=== PATIENT | female | born 1970 | race Caucasian/White ===

== ENCOUNTER → 2020-06-13 | Outpatient (CLI) | payer OTHER ==
--- NOTE | 2020-06-14 19:25 | MAM ---
EXAM DESCRIPTION: 3D Screening BILATERAL : Digital Mammography. CLINICAL HISTORY: 50 years Female SCREENING . No complaints. Mother with ovarian cancer age 29. Sister with breast cancer age 51. No personal history of breast cancer. Menarche age 16. Childbirth age 19. Menopause age 42. No HRT. Lifetime risk of developing breast cancer (Tyrer-Cuzick model)(%): 14.9. COMPARISON: Baseline study at this facility.. No prior reports available. TECHNIQUE: Bilateral CC and MLO projection full-field images, digital tomosynthesis mammographic technique. Bilateral digital 2-D full-field MLO images. CAD available for 2-D images. FINDINGS: The breast parenchymal density pattern is: Scattered areas of fibroglandular density. No skin thickening or nipple retraction. Axillary nodes. Solitary microcalcifications. Focal asymmetry versus mass density upper outer quadrant middle third left breast at 2:30. No focal, stellate mass or density, focal asymmetry , and no suspicious microcalcifications right breast IMPRESSION: BI-RADS CATEGORY: 0 - INCOMPLETE- Need additional imaging evaluation. RECOMMENDATIONS: FOLLOW-UP: Recall for additional imaging: Full-field 2-D and tomosynthesis bilateral MLO projections and left breast full-field 2-D and tomosynthesis LM and CC projections. Directed left breast ultrasound. Written communication concerning the IMPRESSION and Follow-up, will be mailed to the patient and referring health care provider. Electronically signed by: Shailesh Cnuningham MD 06/14/2020 7:23 PM [employer]APH[employer]
== END ==
LOC: MAMMO 13:50
PROVIDERS: ATTEND Family Medicine
DX: Z12.31 Encounter for screening mammogram for malignant neoplasm of breast (principal)

== ENCOUNTER → 2020-07-09 | Outpatient (CLI) | payer OTHER ==
--- NOTE | 2020-07-10 17:57 | MAM ---
EXAM DESCRIPTION: 3D Diagnostic, Bilateral (accession [id number]), Breast,Left (accession [id number]): Ultrasound CLINICAL HISTORY: 50 yearsFemaleABNORMAL SCREENING focal asymmetry versus mass density left breast. Lifetime risk of developing breast cancer (Tyrer-Cuzick model)(%): 14.9. COMPARISON: Bilateral screening digital breast tomosynthesis June 13. TECHNIQUE: Bilateral LM projection full-field images, and left breast spot compression CC and LM projection: digital tomosynthesis technique. Bilateral 2-D digital full-field images: LM projection and left breast spot compression CC and LM projection. CAD available for 2-D images.. Transcutaneous scanning of the left breast utilizing frausto-scale and Doppler modes. Scanning performed by the commercial collections driver ; observation by Dr. Cunningham. FINDINGS: The breast parenchymal density pattern is: Scattered areas of fibroglandular density. Solitary microcalcifications. Axillary nodes. No skin thickening or nipple retraction multiple nodular densities in the region of interest in the left breast with uniform appearance. No abnormal margins. No new focal, stellate mass or density, focal asymmetry , and no suspicious microcalcifications bilaterally. Ultrasound: Scanning in the lateral middle third left breast. Mostly fatty tissue. Oval shaped circumscribed anechoic structure wider than tall orientation with posterior acoustic enhancement measuring 3.1 mm. Nonvascular. Second structure also having a cystic appearance measuring 4.1 x 3.0 mm. No dominant solid mass, no fluid collection, no large calcifications, and no overlying skin changes IMPRESSION: Benign exam. BIRAD CATEGORY: 2 BENIGN FINDINGS. RECOMMENDATIONS: FOLLOW UP: Routine digital bilateral mammographic screening, one year interval from June 2020. Written communication explaining the IMPRESSION and follow-up, will be mailed to the patient and referring health care provider. The FINDINGS and the FOLLOW-UP plan were reviewed in person with the patient after the examination. According to the [employer], yearly mammograms are recommended starting at age 40 and continuing as long as a woman is in good health. Any breast change noted on a breast self-exam should be reported promptly to the patient's healthcare provider. Breast MRI is recommended for women with an approximately 20-25% or greater lifetime risk of breast cancer, including women with a strong family history of breast or ovarian cancer and women who have been treated for Hodgkin's disease. A negative mammographic report should not delay tissue diagnosis in patients with significant clinical history or physical findings. Extremely dense breast tissue limits the sensitivity of digital mammography. Electronically signed by: Shailesh Cunningham MD 07/10/2020 5:55 PM [facility]
== END ==
LOC: MAMMO 13:02
PROVIDERS: ATTEND Family Medicine
DX: R92.8 Other abnormal and inconclusive findings on diagnostic imaging of breast (principal)
CPT/HCPCS: 76641; 77066; G0279